=== PATIENT | female | born 1975 | race Caucasian/White ===

== ENCOUNTER → 2018-01-01 09:08 | Outpatient (CLI) | payer OTHER, SELFPAY ==
--- NOTE | 2018-01-01 | DI.MG.S_ITS ---
BILATERAL DIGITAL SCREENING MAMMOGRAM 3D/2D WITH CAD: 01/01/2018 CLINICAL: Routine screening. Comparison is made to exams dated: 11/15/2015 mammogram and 11/27/2016 mammogram - [facility]. The tissue of both breasts is heterogeneously dense. This may lower the sensitivity of mammography. Current study was also evaluated with a Computer Aided Detection (CAD) system. No significant masses, calcifications, or other findings are seen in either breast. There has been no significant interval change. IMPRESSION: NEGATIVE There is no mammographic evidence of malignancy. A 1 year screening mammogram is recommended. This exam was interpreted at Station ID: [id number]. NOTE: For mammograms, a report in lay terms will be sent to the patient. Approximately 15% of breast malignancies will not be visualized mammographically. In the management of a palpable breast mass, a negative mammogram must not discourage biopsy of a clinically suspicious lesion. Electronically Signed By: Torsten banks/sal:01/03/2018 02:40:38 letter sent: Normal Exam ACR BI-RADS Category 1: Negative 3341F
== END ==
PROVIDERS: Visit Provider Naturopath
DX: Z12.31 Encounter for screening mammogram for malignant neoplasm of breast (principal)
CPT/HCPCS: 77063; 77067

== ENCOUNTER → 2019-01-08 09:24 | Outpatient (CLI) | payer OTHER, SELFPAY ==
--- NOTE | 2019-01-08 | DI.MG.S_ITS ---
BILATERAL DIGITAL SCREENING MAMMOGRAM 3D/2D WITH CAD: 01/08/2019 CLINICAL: Routine screening. Comparison is made to exams dated: 01/01/2018 mammogram, 11/27/2016 mammogram, and 11/15/2015 mammogram - [facility]. The tissue of both breasts is heterogeneously dense. This may lower the sensitivity of mammography. Current study was also evaluated with a Computer Aided Detection (CAD) system. There is an oval mass in the right breast posterior depth superior region seen on the mediolateral oblique view only. This may represent a lymph node but is not seen on prior comparison mammograms. No other significant masses, calcifications, or other findings are seen in either breast. IMPRESSION: INCOMPLETE: NEEDS ADDITIONAL IMAGING EVALUATION The oval mass in the right breast is indeterminate. Exaggerated CC views as well as additional views with possible ultrasound are recommended. This exam was interpreted at Station ID: [id number]. NOTE: For mammograms, a report in lay terms will be sent to the patient. Approximately 15% of breast malignancies will not be visualized mammographically. In the management of a palpable breast mass, a negative mammogram must not discourage biopsy of a clinically suspicious lesion. Electronically Signed By: Torsten Rodriguez M.D. ecl/:01/09/2019 04:05:36 letter sent: Additional Imaging Needed ACR BI-RADS Category 0: Incomplete 3340F
== END ==
PROVIDERS: Visit Provider Internal Medicine
DX: Z12.31 Encounter for screening mammogram for malignant neoplasm of breast (principal)
CPT/HCPCS: 77063; 77067

== ENCOUNTER → 2019-01-23 10:03 | Outpatient (CLI) | payer OTHER, SELFPAY ==
--- NOTE | 2019-01-23 | DI.MG.S_ITS ---
UNILATERAL RIGHT DIGITAL DIAGNOSTIC MAMMOGRAM 3D/2D WITH ADDITIONAL VIEWS: 01/23/2019 CLINICAL: Additional evaluation requested from prior study. Comparison is made to exams dated: 01/08/2019 mammogram, 01/01/2018 mammogram, 11/27/2016 mammogram, and 11/15/2015 mammogram - [facility]. The tissue of right breast is heterogeneously dense. This may lower the sensitivity of mammography. There is fat containing oval mass with in the right breast posterior depth superior region see on additional views. No other significant masses or calcifications are seen in the breast. IMPRESSION: INCOMPLETE: NEEDS ADDITIONAL IMAGING EVALUATION Mass in the right breast contains fat and is most consistant with a small benign lymph node. An targeted ultrasound is recommended and will immediately follow. This exam was interpreted at Station ID: [id number]. NOTE: For mammograms, a report in lay terms will be sent to the patient. Approximately 15% of breast malignancies will not be visualized mammographically. In the management of a palpable breast mass, a negative mammogram must not discourage biopsy of a clinically suspicious lesion. Electronically Signed By: Rodrick Bull M.D. slc/:01/23/2019 12:08:10 ACR BI-RADS Category 0: Incomplete 3340F
--- NOTE | 2019-01-23 | DI.US.S_ITS ---
LIMITED ULTRASOUND OF RIGHT BREAST: 01/23/2019 CLINICAL: Additional evaluation requested from prior study. Comparison is made to exams dated: 01/23/2019 mammogram, 01/08/2019 mammogram, 01/01/2018 mammogram, 11/27/2016 mammogram, 11/15/2015 mammogram, and 11/15/2015 mammogram - [facility]. Color flow and real-time ultrasound of the right breast retroareolar were performed. Moody scale images of the real-time examination were reviewed. Subcentimeter circumscribed hypoechoic mass with fatty hilum in the far posterior depth right breast is most compatible with a benign lymph node seen on the cine clip. This likely corresponds to the lymph node seen on mammogram. IMPRESSION: BENIGN There is no sonographic evidence of malignancy. Small lymph node seen in the far posterior depth right breast behind the nipple likely corresponds to the lymph node seen on mammogram. A 1 year screening mammogram is recommended. Recommendation was conveyed to the patient by the ammonia print operator. This exam was interpreted at Station ID: [id number]. Electronically Signed By: Rodrick Bull M.D. [facility] [place]/:01/23/2019 12:18:08 letter sent: Normal Exam Ultrasound BI-RADS: 2 Benign
== END ==
PROVIDERS: Visit Provider Internal Medicine
DX: R92.8 Other abnormal and inconclusive findings on diagnostic imaging of breast (principal)
CPT/HCPCS: 76642; 77065; G0279

== ENCOUNTER → 2019-09-18 12:37 | Outpatient (CLI) | payer BC, SELFPAY ==
[2019-09-18 15:54] LABS: Free T4, Direct Thyroxine 1.17 ng/dL (0.78-2.19)
[2019-09-18 16:08] LABS: Thyroid Stimulating Hormone 1.67 uIU/mL (0.47-4.68)
[2019-09-19 10:08] LABS: Triiodothyronine T3 Total 90 ng/dL (71-180)
== END ==
PROVIDERS: PCP Internal Medicine; Referring Provider Internal Medicine; Visit Provider Internal Medicine
DX: E03.9 Hypothyroidism, unspecified (principal)
CPT/HCPCS: 36415; 84439; 84443; 84480

== ENCOUNTER → 2020-02-03 10:39 | Outpatient (CLI) | payer BC, SELFPAY ==
[2020-02-03 12:35] LABS: Add Manual Diff / Slide Review NO; Basophils Absolute Auto 0 /uL (0-100); Basophils Percent Auto 0.9 % (0-2); Eosinophils Absolute Auto 100 /uL (0-450); Eosinophils Percent Auto 1.1 % (2-4); Hematocrit 33.8 % (36-46); Hemoglobin 10.9 g/dL (12.0-16.0); Lymphocytes Absolute Auto 1400 /uL (1100-4500); Lymphocytes Percent Auto 30.5 % (25-40); Mean Corpuscular HGB Conc 32.1 % (30-36); Mean Corpuscular Volume 84.2 fL (80-100); Monocytes Absolute Auto 400 /uL (0-900); Neutrophils Absolute Auto 2600 /uL (1500-7000); Neutrophils Percent Auto 58.5 % (50-75); Platelet Count 349 X10^3/uL (150-400); Red Blood Cell Count 4.02 X10^6/uL (4.0-5.2); White Blood Cell Count 4.5 X10^3/uL (4.5-11.0)
[2020-02-03 13:31] LABS: Free T3, Triiodothyronine Free 2.78 pg/mL (2.77-5.27); Free T4, Direct Thyroxine 1.01 ng/dL (0.78-2.19)
[2020-02-03 13:49] LABS: Ferritin 7 ng/mL (6-137)
[2020-02-04 10:03] LABS: Thyroid Peroxidase Antibodies <9 IU/mL (0-34)
== END ==
PROVIDERS: PCP Naturopath; Referring Provider Naturopath; Visit Provider Naturopath
DX: D64.9 Anemia, unspecified (principal); E03.9 Hypothyroidism, unspecified
CPT/HCPCS: 36415; 82728; 84439; 84443; 84481; 85025; 86376

== ENCOUNTER → 2020-08-24 13:08 | Outpatient (CLI) | payer BC, SELFPAY ==
[2020-08-24 14:02] LABS: Add Manual Diff / Slide Review NO; Basophils Absolute Auto 0 /uL (0-100); Basophils Percent Auto 0.8 % (0-2); Eosinophils Absolute Auto 100 /uL (0-450); Eosinophils Percent Auto 1.4 % (2-4); Hematocrit 37.6 % (36-46); Hemoglobin 12.5 g/dL (12.0-16.0); Lymphocytes Absolute Auto 1700 /uL (1100-4500); Mean Corpuscular HGB Conc 33.4 % (30-36); Mean Corpuscular Hemoglobin 28.9 PG (26-34); Mean Corpuscular Volume 86.7 fL (80-100); Monocytes Absolute Auto 400 /uL (0-900); Monocytes Percent Auto 7.9 % (3-14); Neutrophils Absolute Auto 3300 /uL (1500-7000); Neutrophils Percent Auto 58.9 % (50-75); Platelet Count 345 X10^3/uL (150-400); Red Blood Cell Count 4.34 X10^6/uL (4.0-5.2); Red Cell Distribution Width 16.5 % (11.6-14.8); White Blood Cell Count 5.6 X10^3/uL (4.5-11.0)
[2020-08-24 14:36] LABS: Free T3, Triiodothyronine Free 3.65 pg/mL (2.77-5.27); Free T4, Direct Thyroxine 1.01 ng/dL (0.78-2.19)
[2020-08-24 14:55] LABS: Ferritin 7 ng/mL (6-137)
== END ==
PROVIDERS: PCP Naturopath; Referring Provider Naturopath; Visit Provider Naturopath
DX: E03.9 Hypothyroidism, unspecified (principal); D50.9 Iron deficiency anemia, unspecified
CPT/HCPCS: 36415; 82728; 84439; 84443; 84481; 85025

== ENCOUNTER → 2020-09-06 10:23 | Outpatient (CLI) | payer BC, SELFPAY ==
--- NOTE | 2020-09-06 | DI.RAD.S_ITS ---
PROCEDURE: XR HIP W PEL IF DONE LT 2V INDICATIONS: LEFT HIP PAIN TECHNIQUE: AP pelvis with lateral view(s) of the left hip(s). COMPARISON: None. FINDINGS: Bones: No acute fracture identified. Lumbar spondylosis and facet arthropathy. Calcific tendinitis projecting at the greater trochanter on right. Scattered degenerative subchondral sclerosis and spurring. Joint spaces grossly preserved. Soft tissues: The visualized bowel gas pattern is normal. No suspicious soft tissue calcifications. IMPRESSION: Mild degenerative spurring and sclerosis. Dictated by: Ken Friedman M.D. on 09/06/2020 at 12:39 Approved by: Ken Friedman M.D. on 09/06/2020 at 13:01
== END ==
PROVIDERS: PCP Naturopath; Referring Provider Naturopath; Visit Provider Naturopath
DX: M25.552 Pain in left hip (principal); M70.62 Trochanteric bursitis, left hip; M47.816 Spondylosis without myelopathy or radiculopathy, lumbar region
CPT/HCPCS: 73502

== ENCOUNTER → 2020-09-23 10:58 | Outpatient (CLI) | payer BC, SELFPAY ==
--- NOTE | 2020-09-23 | DI.RAD.S_ITS ---
PROCEDURE: XR FINGER LT MIN 2V INDICATIONS: PAIN AND INSTABILITY HAIR VIEW CMC JOINT TECHNIQUE: AP hand, 2 views of the left 1st finger(s) acquired. COMPARISON: None. FINDINGS: Bones: No fractures or dislocations. No suspicious bony lesions. Mild to moderate joint space narrowing and osteophytosis at the 1st CMC. Soft tissues: No suspicious soft tissue calcifications. IMPRESSION: No acute finding. [id number] osteoarthritic changes of the 1st CMC. MRI may be helpful to assess for ligamentous injury given the history of instability. Dictated by: Anand Archibald M.D. on 09/23/2020 at 19:52 Approved by: Anand Archibald M.D. on 09/23/2020 at 19:53
--- NOTE | 2020-09-23 | DI.RAD.S_ITS ---
PROCEDURE: XR FINGER RT MIN 2V INDICATIONS: PAIN AND INSTABILITY, HAIR VIEW CMC JOINT OF THUMB TECHNIQUE: AP hand, 3 views of the right thumb acquired. COMPARISON: None. FINDINGS: Bones: No acute fractures or dislocations. No suspicious bony lesions. Severe degenerative arthritis involving the 1st carpometacarpal joint with joint space loss, large osteophytes, and lateral subluxation of the 1st metacarpal relative to the 1st carpal bone. Mild triscaphe joint degenerative change. Soft tissues: No suspicious soft tissue calcifications. 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 Dictated by: Iron Moscoso M.D. on 09/23/2020 at 15:24 Approved by: Iron Moscoso M.D. on 09/23/2020 at 15:26
--- NOTE | 2020-09-23 11:00 | DI.RAD.S_ITS ---
PROCEDURE: XR WRIST RT MIN 3V INDICATIONS: BILATERAL HAND INSTABILITY TECHNIQUE: 4 views of the wrist were acquired. COMPARISON: None. FINDINGS: Bones: No fractures or dislocations. No suspicious bony lesions. Severe 1st CMC joint narrowing with periarticular osteophyte formation. Scaphoid view: Not requested. Soft tissues: No suspicious soft tissue calcifications. IMPRESSION: Severe 1st CMC joint degeneration. Dictated by: Toño Carpenter Reese Interpreted: Anand Archibald MD on 09/23/2020 at 14:06 Transcribed by: BARBIE on 09/23/2020 at 14:07 Approved by: Anand Archibald M.D. on 09/23/2020 at 17:00
--- NOTE | 2020-09-23 11:00 | DI.RAD.S_ITS ---
PROCEDURE: XR WRIST LT MIN 3V INDICATIONS: BILATERAL HAND INSTABILITY TECHNIQUE: 4 views of the wrist were acquired. COMPARISON: [facility], CR, XR WRIST RT MIN 3V, 09/23/2020, 10:57. FINDINGS: Bones: No fractures or dislocations. No suspicious bony lesions. Moderate 1st CMC joint space narrowing with periarticular osteophyte formation. Scaphoid view: Not requested. Soft tissues: No suspicious soft tissue calcifications. IMPRESSION: Moderate 1st CMC joint degeneration. Dictated by: Toño Carpenter [facility] Interpreted: Anand Archibald MD on 09/23/2020 at 14:08 Transcribed by: BARBIE on 09/23/2020 at 14:08 Approved by: Anand Archibald M.D. on 09/23/2020 at 17:00
== END ==
PROVIDERS: PCP Naturopath; Referring Provider Orthopaedic Surgery; Visit Provider Orthopaedic Surgery
DX: M25.341 Other instability, right hand (principal); M25.342 Other instability, left hand; M18.0 Bilateral primary osteoarthritis of first carpometacarpal joints; M19.041 Primary osteoarthritis, right hand
CPT/HCPCS: 73110; 73140

== ENCOUNTER → 2020-10-25 09:42 | Outpatient (CLI) | payer BC, SELFPAY ==
--- NOTE | 2020-10-25 09:44 | DI.RAD.S_ITS ---
PROCEDURE: XR HAND RT MIN 3V INDICATIONS: swollen finger TECHNIQUE: 3 views of the hand(s) acquired. COMPARISON: None. FINDINGS: Bones: No fractures or dislocations but there is mild soft tissue swelling over the interphalangeal joint of the 3rd digit proximally.. Carpal bones are normally aligned. No suspicious bony lesions. Soft tissues: No suspicious soft tissue calcifications. IMPRESSION: No trauma found. Third proximal interphalangeal joint region soft tissue swelling. Dictated by: Bruce Hudson M.D. on 10/25/2020 at 11:03 Approved by: Bruce Hudson M.D. on 10/25/2020 at 11:06
== END ==
PROVIDERS: PCP Naturopath; Referring Provider Physician Assistant; Visit Provider Physician Assistant
DX: M79.89 Other specified soft tissue disorders (principal)
CPT/HCPCS: 73130

== ENCOUNTER → 2021-01-17 17:46 | Outpatient (CLI) | payer BC, SELFPAY ==
--- NOTE | 2021-01-17 | DI.MG.S_ITS ---
BILATERAL DIGITAL SCREENING MAMMOGRAM 3D/2D WITH CAD: 01/17/2021 Comparison is made to exams dated: 01/23/2019 mammogram, 01/08/2019 mammogram, 01/01/2018 mammogram, and 11/27/2016 mammogram - [facility]. The tissue of both breasts is heterogeneously dense. This may lower the sensitivity of mammography. Current study was also evaluated with a Computer Aided Detection (CAD) system. There are benign calcifications in both breasts. There are mole markers on both breasts. No significant masses, calcifications, or other findings are seen in either breast. There has been no significant interval change. IMPRESSION: BENIGN There is no mammographic evidence of malignancy. A 1 year screening mammogram is recommended. This exam was interpreted at Station ID: [id number]. NOTE: For mammograms, a report in lay terms will be sent to the patient. Approximately 15% of breast malignancies will not be visualized mammographically. In the management of a palpable breast mass, a negative mammogram must not discourage biopsy of a clinically suspicious lesion. Electronically Signed By: Casper Conrad acr/penrad:01/18/2021 08:22:21 letter sent: Normal Exam ACR BI-RADS Category 2: Benign Finding(s) 3342F
== END ==
PROVIDERS: PCP Naturopath; Referring Provider Naturopath; Visit Provider Naturopath
DX: Z12.31 Encounter for screening mammogram for malignant neoplasm of breast (principal)
CPT/HCPCS: 77063; 77067

== ENCOUNTER → 2021-01-24 12:13 | Outpatient (CLI) | payer BC, SELFPAY ==
--- NOTE | 2021-01-24 12:19 | DI.RAD.S_ITS ---
PROCEDURE: XR FINGER RT MIN 2V INDICATIONS: S/P RT THUMB CMC JOINT RESECTION ARTHROPLASTY TECHNIQUE: AP hand, 2 views of the 1st digit acquired. COMPARISON: [facility], , XR FINGER RT MIN 2V, 09/23/2020, 11:13. FINDINGS: Bones: There is interval resection of the trapezium. No fractures or dislocations. Soft tissues: No suspicious soft tissue calcifications. IMPRESSION: 1. Postsurgical changes consistent with interval resection of the trapezium. Dictated by: Jose Romero M.D. on 01/24/2021 at 17:12 Approved by: Jose Romero M.D. on 01/24/2021 at 17:13
--- NOTE | 2021-01-24 12:19 | DI.RAD.S_ITS ---
PROCEDURE: XR WRIST RT MIN 3V INDICATIONS: S/P RT THUMB CMC JOINT RESECTION ARTHROPLASTY TECHNIQUE: 3 views of the wrist were acquired. COMPARISON: [facility], CR, XR WRIST RT MIN 3V, 09/23/2020, 10:57. FINDINGS: Bones: Status post resection of the trapezium. Surgical clips adjacent to the proximal 1st and 2nd metacarpals. Scaphoid view: Not requested Soft tissues: No suspicious soft tissue calcifications. IMPRESSION: Postsurgical sequelae. No acute fracture. No osseous lesion. If symptoms and/or clinical suspicion for pathology persist, further assessment with repeat, or advanced imaging (e.g., CT, MRI, or bone scan) may be helpful for further assessment. Dictated by: Steven Hernandez M.D. on 01/24/2021 at 16:24 Approved by: Steven Hernandez M.D. on 01/24/2021 at 16:52
== END ==
PROVIDERS: PCP Naturopath; Referring Provider Orthopaedic Surgery; Visit Provider Orthopaedic Surgery
DX: Z96.691 Finger-joint replacement of right hand (principal); Z09 Encounter for follow-up examination after completed treatment for conditions other than malignant neoplasm
CPT/HCPCS: 73110; 73140

== ENCOUNTER → 2021-04-06 08:36 | Outpatient (CLI) | payer BC, SELFPAY ==
[2021-04-06 09:07] LABS: Add Manual Diff / Slide Review NO; Basophils Absolute Auto 0 /uL (0-100); Basophils Percent Auto 0.6 % (0-2); Eosinophils Absolute Auto 100 /uL (0-450); Eosinophils Percent Auto 1.6 % (2-4); Hematocrit 38.7 % (36-46); Hemoglobin 13.5 g/dL (12.0-16.0); Lymphocytes Absolute Auto 1900 /uL (1100-4500); Mean Corpuscular HGB Conc 34.9 % (30-36); Mean Corpuscular Hemoglobin 31.4 PG (26-34); Mean Corpuscular Volume 89.8 fL (80-100); Monocytes Absolute Auto 400 /uL (0-900); Monocytes Percent Auto 7.2 % (3-14); Neutrophils Absolute Auto 3000 /uL (1500-7000); Neutrophils Percent Auto 55.6 % (50-75); Platelet Count 318 X10^3/uL (150-400); Red Blood Cell Count 4.31 X10^6/uL (4.0-5.2); White Blood Cell Count 5.3 X10^3/uL (4.5-11.0)
[2021-04-06 09:32] LABS: Alanine Aminotransferase 18 IU/L (<35); Albumin 4.3 g/dL (3.5-5.0); Albumin Globulin Ratio 1.5 (1.0-2.8); Alkaline Phosphatase 68 U/L (38-126); Aspartate Aminotransferase 23 IU/L (14-36); BUN Creatinine Ratio 16.3 (6-22); Bilirubin Total 0.5 mg/dL (0.2-1.3); Blood Urea Nitrogen 13 mg/dL (7-17); Calcium 9.7 mg/dL (8.4-10.2); Carbon Dioxide 25 mmol/L (22-32); Chloride 105 mmol/L (98-107); Cholesterol 309 mg/dL (140-199); Estimated Glomerular Filt Rate > 60.0 mL/min (>60); Globulin 2.8 g/dL (1.7-4.1); Glucose 105 mg/dL (70-100); HDL Cholesterol 85 mg/dL (40-60); HEMOLYSIS < 15 (0-50); LDL Cholesterol Calculated 150 mg/dL (<100); Potassium 4.5 mmol/L (3.4-5.1); Sodium 139 mmol/L (137-145); Total Protein 7.1 g/dL (6.3-8.2); Triglycerides 372 mg/dL (35-150)
[2021-04-06 09:49] LABS: Free T3, Triiodothyronine Free 3.51 pg/mL (2.77-5.27); Free T4, Direct Thyroxine 0.91 ng/dL (0.78-2.19)
[2021-04-06 10:02] LABS: Thyroid Stimulating Hormone 4.39 uIU/mL (0.47-4.68)
[2021-04-06 10:08] LABS: Ferritin 32 ng/mL (6-137)
== END ==
PROVIDERS: PCP Naturopath; Referring Provider Naturopath; Visit Provider Naturopath
DX: Z00.00 Encounter for general adult medical examination without abnormal findings (principal); D50.9 Iron deficiency anemia, unspecified; E03.9 Hypothyroidism, unspecified
CPT/HCPCS: 36415; 80053; 80061; 82728; 84439; 84443; 84481; 85025

== ENCOUNTER → 2021-04-28 11:21 | Outpatient (CLI) | payer OTHER, SELFPAY ==
--- NOTE | 2021-04-28 11:31 | DI.RAD.S_ITS ---
PROCEDURE: XR FINGER LT MIN 2V INDICATIONS: CMC JOINT INSTABILITY, S/P RESECTION ARTHROPLASTY TECHNIQUE: AP hand, 2 views of the 1st finger(s) acquired. COMPARISON: [facility], , XR FINGER RT MIN 2V, 01/24/2021, 12:31. FINDINGS: Bones: Postsurgical changes are noted at 1st metacarpal base and prior resection of trapezium. Alignment of left hand and left thumb is anatomic. No fractures or dislocations. No suspicious bony lesions. Soft tissues: No suspicious soft tissue calcifications. IMPRESSION: Postsurgical changes at 1st CMC joint with anatomic left hand and left thumb alignment. Dictated by: Sundeep Casillas M.D. on 04/28/2021 at 12:13 Approved by: Sundeep Casillas M.D. on 04/28/2021 at 12:16
--- NOTE | 2021-04-28 11:31 | DI.RAD.S_ITS ---
PROCEDURE: XR WRIST RT MIN 3V INDICATIONS: JOINT INSTABILITY TECHNIQUE: 3 views of the wrist were acquired. COMPARISON: [facility], , XR WRIST RT MIN 3V, 01/24/2021, 12:32. FINDINGS: Bones: Postsurgical changes redemonstrated from trapeziectomy with surgical fixation devices at the bases of the 1st and 2nd metacarpals. The alignment is unchanged. Soft tissues: No suspicious soft tissue calcifications. IMPRESSION: Stable postsurgical changes and alignment at the 1st carpometacarpal joint. No acute osseous abnormality. Dictated by: Tesfaye Hernandez M.D. on 04/28/2021 at 12:24 Approved by: Tesfaye Hernandez M.D. on 04/28/2021 at 12:27
--- NOTE | 2021-04-28 11:31 | DI.RAD.S_ITS ---
PROCEDURE: XR WRIST LT MIN 3V INDICATIONS: JOINT INSTABILITY TECHNIQUE: 3 views of the wrist were acquired. COMPARISON: [facility], CR, XR WRIST RT MIN 3V, 01/24/2021, 12:32. FINDINGS: Bones: Postsurgical changes are seen at 1st CMC joint with resection of trapezium. Wrist alignment is anatomic. No fractures or dislocations. No suspicious bony lesions. Scaphoid view: Scaphoid is intact. Soft tissues: No suspicious soft tissue calcifications. IMPRESSION: Postsurgical changes at 1st CMC joint. Anatomic wrist alignment. No fracture or dislocation. No gross hardware complication. Dictated by: Sundeep Casillas M.D. on 04/28/2021 at 12:16 Approved by: Sundeep Casillas M.D. on 04/28/2021 at 12:17
--- NOTE | 2021-04-28 11:32 | DI.RAD.S_ITS ---
PROCEDURE: XR FINGER RT MIN 2V INDICATIONS: CMC JOINT INSTABILITY, S/P RESECTION ARTHROPLASTY TECHNIQUE: AP hand, 2 views of the 1st finger(s) acquired. COMPARISON: [facility], CR, XR FINGER RT MIN 2V, 01/24/2021, 12:31. [facility], CR, XR FINGER RT MIN 2V, 09/23/2020, 11:13. FINDINGS: Bones: No fractures or dislocations. Mild degenerative change at the 1st CMC joint. No suspicious bony lesions. Soft tissues: No suspicious soft tissue calcifications. Surgical anchors at the base of the 1st and 2nd metacarpals. IMPRESSION: No interval change appreciated. Dictated by: Rodrick Bull M.D. on 04/28/2021 at 12:13 Approved by: Rodrick Bull M.D. on 04/28/2021 at 12:17
== END ==
PROVIDERS: PCP Naturopath; Referring Provider Orthopaedic Surgery; Visit Provider Orthopaedic Surgery
DX: M25.342 Other instability, left hand (principal); M25.341 Other instability, right hand
CPT/HCPCS: 73110; 73140

== ENCOUNTER → 2021-06-23 08:37 | Outpatient (CLI) | payer OTHER, SELFPAY ==
[2021-06-23 09:40] LABS: Cholesterol 145 mg/dL (140-199); Glucose 98 mg/dL (70-100); HDL Cholesterol 61 mg/dL (40-60); LDL Cholesterol Calculated 58 mg/dL (<100); Triglycerides 130 mg/dL (35-150)
== END ==
PROVIDERS: PCP Naturopath; Referring Provider Naturopath; Visit Provider Naturopath
DX: E78.5 Hyperlipidemia, unspecified (principal)
CPT/HCPCS: 36415; 80061; 82947

== ENCOUNTER 2021-11-04 08:30 | Emergency (ER) | payer OTHER, SELFPAY ==
[2021-11-04] VITALS (10 sets, daily range): BP systolic 122–135; BP diastolic 78–88; PULSE 49–70; RESP 10–24; TEMP 37.1; O2SAT 97–100
--- NOTE | 2021-11-04 08:40 | DI.RAD.S_ITS ---
PROCEDURE: XR CHEST 1V INDICATIONS: chest pain TECHNIQUE: One view of the chest was acquired. COMPARISON: None. FINDINGS: Surgical changes and devices: None. Lungs and pleura: Lungs are clear. No pleural effusions or pneumothorax. Mediastinum: Mediastinal contours appear normal. Heart size is normal. Bones and chest wall: No suspicious bony lesions. Overlying soft tissues appear unremarkable. IMPRESSION: No acute cardiopulmonary findings Approved by: Guillermo Burgess M.D. on 11/04/2021 at 9:40
--- NOTE | 2021-11-04 08:47 | DI.CT.S_ITS ---
PROCEDURE: CT ANGIO CHEST PE PROTOCOL INDICATIONS: Pain/dyspnea left side TECHNIQUE: After the administration of intravenous contrast, 2 mm thick sections acquired from the pulmonary apices to the posterior costophrenic angles. For radiation dose reduction, the following was used: automated exposure control, adjustment of mA and/or kV according to patient size. COMPARISON: None. FINDINGS: Image quality: Excellent. Pulmonary arteries: Pulmonary arteries are normal in size, and demonstrate no intraluminal filling defects to suggest central pulmonary embolism. Lungs and pleura: 1 cm right upper lobe nodule on image 5/49. Remainder of the lungs and pleural spaces are clear. No focal infiltrate or pleural effusion. Mediastinum: Heart size is normal, without pericardial effusion. No mediastinal or hilar adenopathy. Thoracic aorta is normal in caliber and enhancement. Esophagus is normal in caliber, without hiatal hernia. Bones and chest wall: No suspicious bony lesions. Ribs and thoracic spine appear intact throughout. Thyroid gland unremarkable. No axillary or supraclavicular adenopathy. Abdomen: Visualized upper abdominal solid organs appear normal in the early arterial phase of enhancement. IMPRESSION: No evidence of pulmonary embolism aortic dissection or aneurysm. Incidental solitary right upper lobe pulmonary nodule, 1 cm. Consider 3 month follow-up CT and/or PET-CT Approved by: Guillermo Burgess M.D. on 11/04/2021 at 10:35
--- NOTE | 2021-11-04 08:49 | ED.BACK ---
HPI - Back Pain/Injury General Chief Complaint: Chest Pain Stated Complaint: PAIN IN CHEST AND BACK HURTS TO BREATHE Time Seen by Provider: 11/04/21 08:40 History of Present Illness HPI Narrative: Patient complains of left scapular pain that is reproducible on lying flat and deep breath. No history of smoking. No history of hypertension no history of coronary disease no history of blood clots in legs or lungs. No recent long travel or immobilization. This started Saturday night, awoke her from her sleep. Since that has been constant. No rash. No primary family history of coronary disease. Denies any leg or calf pain Related Data Home Medications Medication Instructions Recorded Confirmed levothyroxine 50 mcg capsule 50 mcg PO DAILY 04/03/19 04/03/19 omeprazole 20 mg capsule,delayed 20 mg PO DAILY 04/03/19 04/03/19 release Estrogen PO 10/25/20 liothyronine 5 mcg tablet 5 mcg PO DAILY 10/25/20 10/25/20 Previous Rx's Medication Instructions Recorded baclofen 20 mg tablet 20 mg PO TID #14 tabs 11/04/21 ibuprofen 600 mg tablet 600 mg PO Q6H PRN fever or pain 11/04/21 #24 tabs Allergies Allergy/AdvReac Type Severity Reaction Status Date / Time No Known Allergies Allergy Uncoded 10/25/20 11:14 Review of Systems Review of Systems Narrative: GENERAL: Denies chills, fatigue, malaise, fever, sweats. HEENT: Denies sinus pain, ear pain, sore throat RESPIRATORY: Denies dyspnea, cough CARDIOVASCULAR: Denies chest pain, palpitations GASTROINTESTINAL: Denies nausea, vomiting, abdominal pain : Denies dysuria, frequency, hematuria MUSCULOSKELETAL: Positive for back and muscle or bony pain SKIN: Denies rash, skin lesions NEUROLOGIC: Denies weakness, numbness ROS Unobtainable: All systems reviewed & are unremarkable except as noted in HPI and below Patient History Surgical History History of third molar tooth extraction Social History Smoking Status: Never smoker Smoking Status: Never smoker Exam Narrative Exam Narrative: GENERAL: in no distress, not toxic not dyspneic HEAD: Normocephalic. EYES: Pupils equal round No scleral icterus. ENT: Mucous membranes moist. NECK: Trachea midline. CARDIOVASCULAR: Regular rate and rhythm without murmurs RESPIRATORY: Clear to auscultation. Breath sounds equal bilaterally. No wheezes, rales, or rhonchi. GASTROINTESTINAL: Abdomen soft, non-tender EXTREMITIES: No gross deformities. BACK: No flank tenderness. There is reproducible left scapular pain with deep breath and movement. Nontender on direct palpation. There is no rash. NEURO: AOx4. SKIN: Warm and dry PSYCH: Not anxious, is cooperative Initial Vital Signs Initial Vital Signs: Vital Signs Temperature 98.8 F 11/04/21 08:54 Pulse Rate 70 11/04/21 08:54 Respiratory Rate 18 11/04/21 08:54 Blood Pressure 135/88 11/04/21 08:54 Pulse Oximetry 99 11/04/21 08:54 Oxygen Delivery Method 11/04/21 08:54 Scores HEART Score Heart Score history: Slightly Suspicious Heart Score EKG: Normal Heart Score Age: 45-64 years old Heart Score risk factors: 1-2 risk factors Heart Score troponin: < or = to normal limit Heart Score Total: 2 Course Course Course Narrative: No new issues during course of stay Orders Ordered: Discontinued Medications Sodium Chloride (Normal Saline 0.9%) 500 mls @ 1,000 mls/hr IV BOLUS ONE Stop: 11/04/21 09:16 Last Infusion: 11/04/21 09:40 Dose: 0 mls/hr Documented By: Admin: 11/04/21 09:09 Dose: 1,000 mls/hr Documented By: CORTNEY Ketorolac Tromethamine (Ketorolac 30 Mg/Ml Vial) 15 mg IV NOW ONE Stop: 11/04/21 08:48 Last Admin: 11/04/21 09:09 Dose: 15 mg Documented By: CORTNEY Morphine Sulfate (Morphine 4 Mg/Ml Inj) 4 mg IV NOW ONE Stop: 11/04/21 11:11 Last Admin: 11/04/21 11:17 Dose: 4 mg Documented By: KOFFI Ondansetron HCl (Ondansetron 4 Mg/2 Ml Inj) 4 mg IV NOW ONE Stop: 11/04/21 11:12 Last Admin: 11/04/21 11:18 Dose: Not Given Documented By: KOFFI Reevaluation(s) Reevaluation #1: Pain has improved. Not completely resolved. But better. Patient received Toradol and morphine. Reviewed results with patient and . At this this could be musculoskeletal/muscle strain versus radiculopathy from the thoracic spine. Otherwise imaging and blood work are reassuring. It will take time to get better. Refrain from working out at the gym or weight lifting. Return precautions reviewed with patient and . Neurovascularly intact. He medically stable at this time. Time: 12:09 Vital Signs Vital signs: Vital Signs - 8 hr 11/04/21 11:17 11/04/21 11:17 11/04/21 11:30 Pulse Rate 60 53 L Respiratory Rate 18 20 Blood Pressure 122/78 Pulse Oximetry 98 99 Oxygen Delivery Method 11/04/21 12:00 Pulse Rate 49 L Respiratory Rate Blood Pressure Pulse Oximetry 97 Oxygen Delivery Method Room Air MDM - Back Pain/Injury Differential Diagnosis Differential diagnosis: Likely other (GA/non-STEMI/angina/PE/pleurisy/musculoskeletal pain./strain) Lab Data Result diagrams: 11/04/21 08:50 11/04/21 08:50 Labs: Lab Results 11/04/21 11/04/21 Range/Units 08:50 08:50 WBC 5.2 (4.5-11.0) X10^3/uL RBC 4.33 (4.0-5.2) X10^6/uL Hgb 13.5 (12.0-16.0) g/dL Hct 39.5 (36-46) % MCV 91.4 (80-100) fL MCH 31.2 (26-34) PG MCHC 34.1 (30-36) % RDW 13.5 (11.6-14.8) % Plt Count 275 (150-400) X10^3/uL Neut % (Auto) 51.5 (50-75) % Lymph % (Auto) 38.0 (25-40) % [place] % (Auto) 7.9 (3-14) % Eos % (Auto) 1.7 L (2-4) % Baso % (Auto) 0.9 (0-2) % Neut # (Auto) 2700 (6759-7658) /uL Lymph # (Auto) 2000 (6583-2222) /uL [place] # (Auto) 400 (0-900) /uL Eos # (Auto) 100 (0-450) /uL Baso # (Auto) 0 (0-100) /uL Sodium 138 (137-145) mmol/L Potassium 4.2 (3.4-5.1) mmol/L Chloride 102 (98-107) mmol/L Carbon Dioxide 27 (22-32) mmol/L BUN 18 H (7-17) mg/dL Creatinine 0.76 (0.52-1.04) mg/dL Estimated GFR > 60 (>60) mL/min BUN/Creatinine Ratio 23.7 H (6-22) Glucose 92 (70-100) mg/dL Calcium 8.9 (8.4-10.2) mg/dL Magnesium 2.1 (1.6-2.3) mg/dL Total Bilirubin 0.7 (0.2-1.3) mg/dL AST 23 (14-36) IU/L ALT 15 (<35) IU/L Alkaline Phosphatase 59 (38-126) U/L Total Creatine Kinase 64 (30-135) U/L CK-MB (CK-2) TNP CK-MB (CK-2) Rel Index TNP Troponin I < 0.012 (0.01-0.034) ng/mL Total Protein 7.1 (6.3-8.2) g/dL Albumin 4.4 (3.5-5.0) g/dL Globulin 2.7 (1.7-4.1) g/dL Albumin/Globulin Ratio 1.6 (1.0-2.8) Lipase 179 (23-300) U/L Imaging Data Chest x-ray: Radiologist's Impression: [address] [id number] XRay Report Signed Patient: Azucena Domingo MR#: [id number] : 1975 Acct:[id number] Age/Sex: 46 / F Date of Service: 11/04/21 Loc: ED Accession Number: [id number] ?? Procedure: XR chest 1V Ordering Provider: Pasquale Solorzano MD PROCEDURE:? XR CHEST 1V ? INDICATIONS:? chest pain ? TECHNIQUE:? One view of the chest was acquired.? ? COMPARISON:? None. ? FINDINGS:? ? Surgical changes and devices:? None.? ? Lungs and pleura:? Lungs are clear.? No pleural effusions or pneumothorax.? ? Mediastinum:? Mediastinal contours appear normal.? Heart size is normal.? ? Bones and chest wall:? No suspicious bony lesions.? Overlying soft tissues appear unremarkable.? ? IMPRESSION:? No acute cardiopulmonary findings ? ? ? Approved by: Guillermo Burgess M.D. on 11/04/2021 at 9:40? CT scan - chest: Radiologist's Impression: [address] [id number] [address] Scan Report Signed Patient: Azucena Domingo MR#: [id number] : 1975 Acct:[id number] Age/Sex: 46 / F Date of Service: 11/04/21 Loc: ED Accession Number: [id number] ?? Procedure: CT angio chest PE protocol Ordering Provider: Pasquale Solorzano MD PROCEDURE:? CT ANGIO CHEST PE PROTOCOL ? INDICATIONS:? Pain/dyspnea left side ? TECHNIQUE:? After the administration of intravenous contrast, 2 mm thick sections acquired from the pulmonary apices to the posterior costophrenic angles.? For radiation dose reduction, the following was used:? automated exposure control, adjustment of mA and/or kV according to patient size.? ? COMPARISON:? None. ? FINDINGS:? Image quality:? Excellent.? ? Pulmonary arteries:? Pulmonary arteries are normal in size, and demonstrate no intraluminal filling defects to suggest central pulmonary embolism.? ? Lungs and pleura:? 1 cm right upper lobe nodule on image 5/49.? Remainder of the lungs and pleural spaces are clear.? No focal infiltrate or pleural effusion. ? Mediastinum:? Heart size is normal, without pericardial effusion.? No mediastinal or hilar adenopathy.? Thoracic aorta is normal in caliber and enhancement.? Esophagus is normal in caliber, without hiatal hernia.? ? Bones and chest wall:? No suspicious bony lesions.? Ribs and thoracic spine appear intact throughout.? Thyroid gland unremarkable.? No axillary or supraclavicular adenopathy.? ? Abdomen:? Visualized upper abdominal solid organs appear normal in the early arterial phase of enhancement.? ? IMPRESSION:? ? No evidence of pulmonary embolism aortic dissection or aneurysm. ? Incidental solitary right upper lobe pulmonary nodule, 1 cm.? Consider 3 month follow-up CT and/or PET-CT ? ? ? Approved by: Guillermo Burgess M.D. on 11/04/2021 at 10:35? ECG Data Interpretation: Normal sinus rhythm rate [address] elevation or depression MDM Narrative Medical decision making narrative: Appropriate for discharge home. Hemodynamically stable neurovascularly intact. No rash seen although considering shingles is also in differential. Return precautions reviewed patient and . Not toxic at discharge. At this time CT imaging and blood work reassuring. Pain is reproducible. Likely musculoskeletal. Discharge Plan Departure Patient Disposition: Home Clinical Impression: Acute left-sided thoracic back pain Instructions: Thoracic Back Pain Activity Restrictions/Additional Instructions: No driving or operating machinery today when taking prescribed pain medication. See family doctor next week for re-evaluation. Prescriptions have been provided to help for controlling the pain. At this time refrain from lifting weights or working out until improvement of this pain. Return if worse if any questions or concerns Prescriptions: New baclofen 20 mg tablet 20 mg PO TID Qty: 14 0RF ibuprofen 600 mg tablet 600 mg PO Q6H PRN (Reason: fever or pain) Qty: 24 0RF No Action levothyroxine 50 mcg capsule 50 mcg PO DAILY omeprazole 20 mg capsule,delayed release(DR/EC) 20 mg PO DAILY liothyronine 5 mcg tablet 5 mcg PO DAILY Estrogen PO Referrals: Birgit Lee ND [Primary Care Provider] - Visit Report Forms: Patient Portal/API
[2021-11-04] MEDS: KETOROLAC 30 MG/ML VIAL 15 MG IV (09:09)
[2021-11-04] MEDS: SODIUM CHLORIDE 0.9% 500 ML 1000 ML IV (09:09)
[2021-11-04 09:20] LABS: Add Manual Diff / Slide Review NO; Basophils Absolute Auto 0 /uL (0-100); Basophils Percent Auto 0.9 % (0-2); Eosinophils Absolute Auto 100 /uL (0-450); Eosinophils Percent Auto 1.7 % (2-4); Hematocrit 39.5 % (36-46); Hemoglobin 13.5 g/dL (12.0-16.0); Lymphocytes Absolute Auto 2000 /uL (1100-4500); Mean Corpuscular HGB Conc 34.1 % (30-36); Mean Corpuscular Hemoglobin 31.2 PG (26-34); Mean Corpuscular Volume 91.4 fL (80-100); Monocytes Absolute Auto 400 /uL (0-900); Monocytes Percent Auto 7.9 % (3-14); Neutrophils Absolute Auto 2700 /uL (1500-7000); Neutrophils Percent Auto 51.5 % (50-75); Platelet Count 275 X10^3/uL (150-400); Red Blood Cell Count 4.33 X10^6/uL (4.0-5.2); Red Cell Distribution Width 13.5 % (11.6-14.8); White Blood Cell Count 5.2 X10^3/uL (4.5-11.0)
[2021-11-04 09:28] LABS: Alanine Aminotransferase 15 IU/L (<35); Albumin 4.4 g/dL (3.5-5.0); Albumin Globulin Ratio 1.6 (1.0-2.8); Alkaline Phosphatase 59 U/L (38-126); Aspartate Aminotransferase 23 IU/L (14-36); BUN Creatinine Ratio 23.7 (6-22); Bilirubin Total 0.7 mg/dL (0.2-1.3); Blood Urea Nitrogen 18 mg/dL (7-17); Calcium 8.9 mg/dL (8.4-10.2); Carbon Dioxide 27 mmol/L (22-32); Chloride 102 mmol/L (98-107); Creatine Kinase 64 U/L (30-135); Estimated Glomerular Filt Rate > 60 mL/min (>60); Globulin 2.7 g/dL (1.7-4.1); Glucose 92 mg/dL (70-100); HEMOLYSIS < 15 (0-50); Lipase 179 U/L (23-300); Magnesium 2.1 mg/dL (1.6-2.3); Potassium 4.2 mmol/L (3.4-5.1); Sodium 138 mmol/L (137-145); Total Protein 7.1 g/dL (6.3-8.2)
[2021-11-04 09:40] LABS: Troponin I < 0.012 ng/mL (0.01-0.034)
[2021-11-04] MEDS: MORPHINE 4 MG/ML INJ IV (11:17)
--- NOTE | 2021-11-04 11:25 | PC.NURSE ---
Pt was given 2mg of morphine and requested no more. Order was for 4mg. This RN wasted 2mg of morphine with RN
== END 2021-11-04 12:16 | disposition home or self-care (01) ==
PROVIDERS: Emergency Provider Emergency Medicine; PCP Naturopath
DX: M54.6 Pain in thoracic spine (principal); R07.9 Chest pain, unspecified
CPT/HCPCS: 36415; 71045; 71275; 80053; 82550; 83690; 83735; 84484; 85025; 93005; 93010; 96361; 96374; 96375; 99284; J1885; J2270; Q9967

== ENCOUNTER → 2022-02-09 17:24 | Outpatient (CLI) | payer OTHER, SELFPAY ==
--- NOTE | 2022-02-09 17:25 | DI.MG.S_ITS ---
BILATERAL DIGITAL SCREENING MAMMOGRAM 3D/2D WITH CAD: 02/09/2022 CLINICAL: Routine screening. Comparison is made to exams dated: 01/17/2021 mammogram, 01/08/2019 mammogram, and 01/01/2018 mammogram - [facility]. Both breasts are heterogeneously dense, which may obscure small masses (category c / 51-75% glandular tissue). Current study was also evaluated with a Computer Aided Detection (CAD) system. There are benign calcifications in both breasts. There are mole markers on both breasts. No significant masses, calcifications, or other findings are seen in either breast. There has been no significant interval change. IMPRESSION: BENIGN There is no mammographic evidence of malignancy. A 1 year screening mammogram is recommended. Based on the Tyrer Cuzick model (a risk assessment model) the patient's lifetime risk is 10.2% and her 10 year risk is 2.0%. According to the ACR, ACS, and NCCN guidelines, an annual breast MRI exam along with mammogram is recommended if the patient's lifetime risk is 20% or greater. This exam was interpreted at Station ID: [id number]. NOTE: For mammograms, a report in lay terms will be sent to the patient. Approximately 15% of breast malignancies will not be visualized mammographically. In the management of a palpable breast mass, a negative mammogram must not discourage biopsy of a clinically suspicious lesion. Electronically Signed By: Chris way/sal:02/10/2022 09:31:24 letter sent: Normal Exam ACR BI-RADS Category 2: Benign Finding(s) 3342F
== END ==
PROVIDERS: PCP Naturopath; Referring Provider Naturopath; Visit Provider Naturopath
DX: Z12.31 Encounter for screening mammogram for malignant neoplasm of breast (principal)
CPT/HCPCS: 77063; 77067

== ENCOUNTER → 2022-03-02 08:23 | Outpatient (CLI) | payer OTHER, SELFPAY ==
[2022-03-02 09:57] LABS: Cholesterol 228 mg/dL (140-199); HDL Cholesterol 79 mg/dL (40-60); LDL Cholesterol Calculated 124 mg/dL (<100); Triglycerides 127 mg/dL (35-150)
[2022-03-02 10:06] LABS: Free T3, Triiodothyronine Free 2.75 pg/mL (2.77-5.27); Free T4, Direct Thyroxine 0.83 ng/dL (0.78-2.19)
[2022-03-02 10:19] LABS: Thyroid Stimulating Hormone 4.01 uIU/mL (0.47-4.68)
== END ==
PROVIDERS: PCP Naturopath; Referring Provider Naturopath; Visit Provider Naturopath
DX: E78.5 Hyperlipidemia, unspecified (principal); E03.9 Hypothyroidism, unspecified
CPT/HCPCS: 36415; 80061; 84439; 84443; 84481

== ENCOUNTER → 2022-04-25 08:41 | Outpatient (CLI) | payer OTHER, SELFPAY ==
[2022-04-25 10:22] LABS: Free T3, Triiodothyronine Free 3.39 pg/mL (2.77-5.27); Free T4, Direct Thyroxine 1.08 ng/dL (0.78-2.19)
[2022-04-25 10:36] LABS: Thyroid Stimulating Hormone 1.81 uIU/mL (0.47-4.68)
== END ==
PROVIDERS: PCP Naturopath; Referring Provider Naturopath; Visit Provider Naturopath
DX: E03.9 Hypothyroidism, unspecified (principal)
CPT/HCPCS: 36415; 84439; 84443; 84481

== ENCOUNTER → 2022-12-19 08:51 | Outpatient (CLI) | payer OTHER, SELFPAY ==
[2022-12-19 09:54] LABS: Add Manual Diff / Slide Review NO; Basophils Absolute Auto 0 /uL (0-100); Basophils Percent Auto 0.7 % (0-2); Eosinophils Absolute Auto 0 /uL (0-450); Eosinophils Percent Auto 1.1 % (2-4); Hematocrit 39.8 % (36-46); Hemoglobin 13.8 g/dL (12.0-16.0); Lymphocytes Absolute Auto 1300 /uL (1100-4500); Lymphocytes Percent Auto 31.2 % (25-40); Mean Corpuscular HGB Conc 34.6 % (30-36); Mean Corpuscular Hemoglobin 31.5 PG (26-34); Mean Corpuscular Volume 91.1 fL (80-100); Monocytes Absolute Auto 300 /uL (0-900); Monocytes Percent Auto 7.3 % (3-14); Neutrophils Absolute Auto 2500 /uL (1500-7000); Neutrophils Percent Auto 59.7 % (50-75); Platelet Count 236 X10^3/uL (150-400); Red Blood Cell Count 4.37 X10^6/uL (4.0-5.2); White Blood Cell Count 4.2 X10^3/uL (4.5-11.0)
[2022-12-19 10:17] LABS: Alanine Aminotransferase 18 IU/L (<35); Albumin 4.4 g/dL (3.5-5.0); Albumin Globulin Ratio 1.6 (1.0-2.8); Alkaline Phosphatase 52 U/L (38-126); Aspartate Aminotransferase 21 IU/L (14-36); BUN Creatinine Ratio 24.1 (6-22); Bilirubin Total 0.6 mg/dL (0.2-1.3); Blood Urea Nitrogen 19 mg/dL (7-17); Calcium 9.4 mg/dL (8.4-10.2); Carbon Dioxide 28 mmol/L (22-32); Chloride 104 mmol/L (98-107); Cholesterol 211 mg/dL (140-199); Estimated Glomerular Filt Rate > 60 mL/min (>60); Globulin 2.7 g/dL (1.7-4.1); Glucose 93 mg/dL (70-100); HDL Cholesterol 77 mg/dL (40-60); HEMOLYSIS < 15 (0-50); LDL Cholesterol Calculated 106 mg/dL (<100); Potassium 4.2 mmol/L (3.4-5.1); Sodium 139 mmol/L (137-145); Total Protein 7.1 g/dL (6.3-8.2); Triglycerides 140 mg/dL (35-150)
[2022-12-19 10:32] LABS: Free T3, Triiodothyronine Free 3.04 pg/mL (2.77-5.27); Free T4, Direct Thyroxine 1.07 ng/dL (0.78-2.19)
[2022-12-19 10:45] LABS: Thyroid Stimulating Hormone 1.72 uIU/mL (0.47-4.68)
[2022-12-19 10:49] LABS: Ferritin 33 ng/mL (6-137)
[2022-12-22 04:47] LABS: Lipoprotein (a) 188.9 nmol/L (<75.0)
== END ==
PROVIDERS: PCP Naturopath; Referring Provider Naturopath; Visit Provider Naturopath
DX: Z00.00 Encounter for general adult medical examination without abnormal findings (principal); D50.9 Iron deficiency anemia, unspecified; E78.5 Hyperlipidemia, unspecified; E03.9 Hypothyroidism, unspecified
CPT/HCPCS: 36415; 80053; 80061; 82728; 83695; 84439; 84443; 84481; 85025

== ENCOUNTER → 2024-07-04 09:55 | Outpatient (CLI) | payer OTHER, SELFPAY | PROVIDERS: PCP Family Medicine; Visit Provider Nurse Practitioner Family | DX: J02.9 Acute pharyngitis, unspecified (principal) | CPT/HCPCS: 87070 ==